=== PATIENT | male | born 1990 | race Two or more races ===

== ENCOUNTER 2018-02-23 10:03 | Observation (INO) | payer SELFPAY ==
[2018-02-23] MEDS ORDERED: fentaNYL 100 MCG/2 ML INJ IVP ONE ×3 (10:15→10:50)
[2018-02-23] MEDS ORDERED: fentaNYL 100 MCG/2 ML INJ ONE (10:47)
[2018-02-23] MEDS ORDERED: ONDANSETRON 4 MG/2 ML VIAL IVP PRN (10:49)
[2018-02-23] MEDS ORDERED: ONDANSETRON DISINTEGRATING 4 MG TAB PO PRN (10:49)
[2018-02-23] MEDS ORDERED: NALOXONE HCL 0.4 MG/ML INJ IVP PRN (10:49)
[2018-02-23] MEDS ORDERED: oxyCODONE IR 5 MG TAB PO PRN (10:52)
[2018-02-23] MEDS ORDERED: PROPOFOL 200 MG/20 ML VIAL ONE (10:55)
[2018-02-23] MEDS ORDERED: NS 1,000 ML IV SCH (11:00)
[2018-02-23] MEDS ORDERED: PROPOFOL 200 MG/20 ML VIAL IVP ONE ×2 (11:05→11:06)
--- NOTE | 2018-02-23 11:23 | EDPHY ---
H & P Stated Complaint: FTA Fall 25 Feet Source: Patient Exam Limitations: No limitations - Personal History Current Tetanus Diphtheria and Acellular Pertussis (TDAP): Unsure - Medical/Surgical History Hx Asthma: No Hx Chronic Respiratory Disease: No Hx Diabetes: No Hx Cardiac Disease: No Hx Renal Disease: No Hx Cirrhosis: No Hx Alcoholism: No Hx HIV/AIDS: No Hx Splenectomy or Spleen Trauma: No Other PMH: none - Social History Smoking Status: Never smoked Time Seen by Provider: 02/23/18 10:39 HPI/ROS: CHIEF COMPLAINT: Full trauma activation, right wrist injury, facial trauma, 25 ft fall HISTORY OF PRESENT ILLNESS: The patient presents to the ED as a full trauma activation with an obvious right wrist deformity. 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 He was brought in by paramedics. The patient's initial GCS was 14 with a upgraded him to a full trauma when he developed decreased mentation in route. The patient arrives to the emergency department with complaints of acute pain in his right wrist. The patient is somnolent and difficult to get history from. What history I can get, the patient does not appear to complain of pain outside of his right wrist. REVIEW OF SYSTEMS: A comprehensive 10 point review of systems is otherwise negative aside from elements mentioned in the history of present illness. (Leander Shannon) - Physical Exam Exam: General Appearance: Alert, no distress Head: Nasal contusion, ecchymosis, superficial abrasion Eyes: Pupils equal, round, reactive ENT, Mouth: No hemotympanum, no oral trauma Neck: Nontender, trachea midline Respiratory: No chest wall tender, no subcutaneous air, lungs clear bilaterally Cardiovascular: Regular rate and rhythm Abdomen: Abdomen is soft and nontender, pelvis stable Skin: No lacerations, No abrasion Back: No midline T/L/S pain Extremities: Obvious Colles fracture deformity noted to the right wrist Neurological: GCS 14, -1 for eyes, moves all 4 extremities with 5/5 strength with the exception of the right wrist (Leander Shannon) Constitutional: Initial Vital Signs Temperature (C) 37.7 C 02/23/18 10:04 Heart Rate 73 02/23/18 10:04 Respiratory Rate 16 02/23/18 10:04 Blood Pressure 131/94 H 02/23/18 10:04 O2 Sat (%) 99 02/23/18 10:04 O2 Delivery Mode Nasal Cannula O2 (L/minute) 4 Allergies/Adverse Reactions: No Allergies Allergy (Verified 02/23/18 10:49) Home Medications: Medication Instructions Recorded NK [No Known Home Meds] 02/23/18 Medical Decision Making - Diagnostics Imaging Results: Imaging Impressions Head CT 02/23/18 10:15 Impression: 1. Nothing acute intracranially. 2. Large congenital right subarachnoid cyst. Findings and recommendations discussed with Dr. Glo Chen at 1045 hour, 2017. Final report concurs with initial preliminary interpretation. Wrist X-Ray 02/23/18 10:17 Impression: 1. Comminuted, impacted fracture of the radial head which is displaced dorsally by one shaft width. 2. Comminuted fractures of the ulnar styloid. 3. Abnormal alignment of the carpal bones on lateral projection. Imaging Impressions Head CT 02/23/18 10:15 Impression: 1. Nothing acute intracranially. 2. Large congenital right subarachnoid cyst. Findings and recommendations discussed with Dr. Glo Chen at 1045 hour, 2017. Final report concurs with initial preliminary interpretation. Wrist X-Ray 02/23/18 10:17 Impression: 1. Comminuted, impacted fracture of the radial head which is displaced dorsally by one shaft width. 2. Comminuted fractures of the ulnar styloid. 3. Abnormal alignment of the carpal bones on lateral projection. CT head without contrast: Images reviewed by myself and discussed with radiologist, negative for acute intracranial hemorrhage or skull fracture CT chest with IV contrast: Negative for intrathoracic injury. CT abdomen pelvis with IV contrast: Negative for intra-abdominal or retroperitoneal injury. CT T and L-spine: Negative for acute fracture CT cervical spine: Negative for acute fracture. All images reviewed by myself and discussed with the on-call radiologist. (Leander Shannon) Procedures: Laceration Repair Verbal consent obtained by patient. Risks discussed, including but not limited to infection, pain, retained foreign body, need for additional repair, poor cosmetic result, tendon damage, nerve damage, poor wound healing, vascular damage. Alternatives to repair discussed. Wesley protocol used to establish correct patient, procedure, equipment, patient support partner, and site. Anesthesia obtained by local infiltration. Anesthetized with 1% lidocaine. Laceration location left nares, length 2.5 cm, depth 3 mm, Repair type intermediate. Patient was prepped and draped in usual sterile fashion. Hemostasis achieved with direct pressure. Wound explored through full range of motion and entire depth of wound probed and visualized with gloved finger. No suspicion for nerve damage, tendon damage, underlying fracture, vascular damage, foreign body, or contamination. Area was cleansed with Shur-Clens and irrigated with sterile saline as per protocol. No foreign body or material removed. Repair method 5-0 Vicryl, simple interrupted, subcutaneous sutures #2. 6 0 Prolene, simple interrupted sutures, superficial skin layer, #9. Eleven of sutures placed. Well aligned, closely approximated. wound was dressed with bacitracin. Patient tolerated well with no immediate complications. Wound care: Clean and dry x 24 hours, gently clean with soap and water, cover with topical antibiotic ointment/bandaid Suture/Staple removal: 7 Days (Ramos Peterson) 1. Procedure: Trauma ultrasound. Limited bedside ultrasound was performed and interpreted by myself for the indication of: Chest contusion. The exam was performed utilizing the thoracoabdominal emergency ultrasound protocol. Limited transthoracic echocardiogram: The pericardium was visualized and found to be negative for pericardial fluid. The study was negative for pericardial effusion. Limited abdominal ultrasound for blunt abdominal trauma. 1) The right upper quadrant was visualized and was found to be negative for intraperitoneal fluid. 2) The left upper quadrant was visualized and found to be negative for intraperitoneal fluid. The study was felt to be negative for free intraperitoneal fluid. Limited pelvic ultrasound was conducted for abdominal tenderness. The bladder was visualized and did not reveal an anechoic area outside of the adjacent urinary bladder. Bladder was distended with urine. The images were saved on the ultrasound database. 2. Procedure: Conscious sedation. Indication: Fracture dislocation reduction The patient is an appropriate candidate to tolerate procedural sedation. The patient's vital signs and mental status are appropriate. The risks, benefits and alternatives of the sedation were discussed with the patient. The patient is ASA classification 2. The patient's Mallampati airway score was 2 and the patient [did] meet the 3-3-2 airway measurements. A time out was completed. The patient was sedated with 80 mg of propofol. The patient was monitored with continuous pulse oximetry, installation drafter and end tidal CO2. [There were no complications and no significant hypoxemia.] I performed [both the sedation and the procedure.] The total time I spent at the bedside during the procedural sedation was 20 minutes. The patient was examined after the procedural sedation and has returned to their pre-sedation baseline with normal vital signs and a normal examination. 3. Procedure: Dislocation reduction. Indication: Dislocation The fracture dislocation of the right elbow was reduced in the usual fashion without complications. Post reduction the patient's neurovascular exam is normal. Post reduction x-ray demonstrates reduction of the joint to the anatomic position. The procedure was performed by myself. (Leander Shannon) ED Course/Re-evaluation: Patient was brought in as a full trauma activation. He arrives to the emergency department with a GCS of 14. Shortly after arrival the patient had decreased mentation transiently. The etiology of this is uncertain however he seemed to recover from the event fairly quickly. The patient was noted to have an obvious fracture dislocation involving the right upper extremity. Patient was taken for CT scan of the head, C-spine, chest abdomen and pelvis which demonstrate no evidence of an obvious intra-abdominal, intrathoracic, intracranial or cervical injury. The patient return to the emergency department. He was noted to have a linear nasal laceration which was cleaned and irrigated. Patient's laceration was repaired in the emergency department by the physician blacksmith assistant Ramos Peterson under my supervision. Patient was seen in consultation by Dr. Chen who will admit the patient in the setting of his concussion. The patient did receive conscious sedation for his fracture dislocation reduction. The patient did have a negative fast ultrasound performed by myself. (Leander Shannon) Critical Care Time: Critical care time exclusive of procedures and exclusive of the PA's time was 35 minutes, performed by myself, Leander Shannon MD. Patient presents the ED with a high mechanism fall with altered mental status. The patient has injuries which include concussion and a fracture dislocation of the arm. He will require admission to the hospital in a setting of his concussive syndrome. (Leander Shannon) - Data Points Laboratory Results: 02/23/18 10:12 POC Hgb 16.7 gm/dL gm/dL (13.7-17.5) POC Hct 49 % % (40-51) POC Sodium 142 mEq/L mEq/L (135-145) POC Potassium 3.7 mEq/L mEq/L (3.3-5.0) POC Chloride 104 mEq/L mEq/L (97-110) POC BUN 10 mg/dL mg/dL (7-23) POC Creatinine 0.9 mg/dL mg/dL (0.7-1.3) POC Glucose 147 mg/dL H mg/dL (70-100) Medications Given: Discontinued Medications Fentanyl (Sublimaze) 50 mcg IVP EDNOW ONE Stop: 02/23/18 10:16 Last Admin: 02/23/18 10:15 Dose: 50 mcg Fentanyl (Sublimaze) 50 mcg IVP EDNOW ONE Stop: 02/23/18 10:16 Last Admin: 02/23/18 10:50 Dose: Not Given Fentanyl (Sublimaze) 50 mcg IVP EDNOW ONE Stop: 02/23/18 10:51 Last Admin: 02/23/18 10:53 Dose: 50 mcg Propofol (Diprivan) 40 mg IVP EDNOW ONE Stop: 02/23/18 11:06 Last Admin: 02/23/18 11:05 Dose: 40 mg Propofol (Diprivan) 40 mg IVP EDNOW ONE Stop: 02/23/18 11:07 Last Admin: 02/23/18 11:06 Dose: 40 mg Point of Care Test Results: Chemistry 02/23/18 10:12 POC Sodium 142 mEq/L mEq/L (135-145) POC Potassium 3.7 mEq/L mEq/L (3.3-5.0) POC Chloride 104 mEq/L mEq/L (97-110) POC BUN 10 mg/dL mg/dL (7-23) POC Creatinine 0.9 mg/dL mg/dL (0.7-1.3) POC Glucose 147 mg/dL H mg/dL (70-100) ISTAT H&H 02/23/18 10:12 POC Hgb 16.7 gm/dL gm/dL (13.7-17.5) POC Hct 49 % % (40-51) Departure - Departure Disposition: [facility] Inpatient Acute Clinical Impression: Concussion Qualifiers: Encounter type: initial encounter Loss of consciousness presence/duration: without LOC Qualified Code(s): S06.0X0A - Concussion without loss of consciousness, initial encounter Nasal laceration Qualifiers: Encounter type: initial encounter Qualified Code(s): S01.21XA - Laceration without foreign body of nose, initial encounter Wrist fracture, right Qualifiers: Encounter type: initial encounter Fracture type: closed Qualified Code(s): S62.101A - Fracture of unspecified carpal bone, right wrist, initial encounter for closed fracture Condition: Fair
[2018-02-23] MEDS ORDERED: TDAP ADULT 0.5 ML INJ (BOOSTRIX) IM ONE ×2 (11:40→12:32)
--- NOTE | 2018-02-23 13:56 | GHP ---
DATE OF ADMISSION: 02/23/2018 CHIEF COMPLAINT: Trauma activation, fall. 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 He did not lose consciousness. His initial GCS at the scene was 14 and en route was declining. He complains of right arm pain. Initially in the trauma bay, he was not responding to questions, to the point where we were about to intubate him, and then started participating with exam. PAST MEDICAL HISTORY: None. PAST SURGICAL HISTORY: None. MEDICATIONS: None. ALLERGIES: No known drug allergies. SOCIAL HISTORY: Does not smoke, do drugs. He works in construction. FAMILY HISTORY: Noncontributory. REVIEW OF SYSTEMS: Difficult to obtain a full 10-point review of systems as he is concentrating mainly on his wrist pain. PHYSICAL EXAMINATION: VITAL SIGNS: 37.7, 73. 131/94, 16, 99%. GENERAL: Pleasant, lying on gurney, ultimately cooperative with exam. HEAD: No obvious signs of trauma to the occiput. EYES: Pupils equal and round. The extraocular muscles are intact. EARS: No otorrhea. No hemotympanum. NOSE: He has a laceration on the left. MOUTH: There is some blood in the mouth. He does have poor dentition. All of his teeth appear to be intact. FACE: No midface instability. CHEST: No clavicular or sternal tenderness. LUNGS: Clear to auscultation bilaterally. No increased work of breathing. CARDIAC: Regular rate. ABDOMEN: Bowel sounds present. Soft, nontender to palpation. MUSCULOSKELETAL: Moves all extremities well with the exception of the right forearm. The right wrist is grossly deformed. On cardiovascular, he does have a radial pulse. RESULTS REVIEWED: I personally reviewed the CT scan of his head, C-spine, chest , abdomen, and pelvis. He does have an air filled sac in the brain. There is no obvious intracranial abnormality. I do not see hemothorax or pneumothorax. No spinal fractures. No solid organ injury. His wrist x-ray, which I personally reviewed, shows fracture dislocation. There is an impacted fracture of the radial head and comminuted fractures of the ulnar styloid. IMPRESSION AND PLAN: The patient is a 27-year-old man with a concussion, nasal laceration, and fracture dislocation of the right wrist. 1. Neurosurgery has been consulted to comment on the cystic structure in his brain. I do not think that this a contributing factor to the trauma. We will do neuro checks q.4 hours due to his GCS declining and then going back to 15. 2. The laceration on his nose will be sutured. 3. On his neck, I palpated his spine. His cervical spine CT was negative, so I cleared his C-spine in the ER. 4. Dr. Shannon reduced the dislocation in his right wrist. Dr. Cleveland has been consulted. The patient may eat, nonweightbearing right forearm. /[id number]/MODL MTDD
--- NOTE | 2018-02-23 14:39 | SOAPPROG ---
MARIA ANTONIA Progress Note Assessment/Plan: Assessment: Syed is a pleasant 27 year old [place] islander speaking male who presented to [facility] ER after falling approximately 25 feet while at work earlier today. He came in with complaints of right wrist pain with obvious deformity of the wrist. Radiographs were taken which showed fracture, dislocation of the distal radius and ulnar styloid fracture. Closed reduction was performed in the ER with adequate reduction (persistent 4.5 mm of dorsal displacement) and sugar tong splint placed. He denies pain elsewhere. He did have symptoms of concussion at time of arrival and has been admitted to trauma for observation. PE: Well molded sugar tong splint in place. Mild swelling of the digits. Sensation intact to light touch of the digits with a brisk cap refill. Post reduction radiographs of the wrist show fracture to be adequately reduced with persistent 4.5mm of dorsal displacement. Plan: Patient will remain NWB in the current sugar tong splint. We discussed that the fracture is still displaced and may need surgical intervention on an outpatient basis. He will continue in the sugar tong splint and will follow up in office in 10-14 days for repeat evaluation and repeat radiograph while in the splint to evaluate for further displacement and discuss options including casting vs surgical intervention. 02/23/18 14:32 Objective: Vital Signs Temp Pulse Resp BP Pulse Ox 37.9 C 91 14 113/71 96 02/23/18 12:56 02/23/18 12:56 02/23/18 12:56 02/23/18 12:56 02/23/18 12:56 02/22/18 02/23/18 02/24/18 05:59 05:59 05:59 Intake Total 1000 Balance 1000 ICD10 Worksheet Patient Problems: Problems Problem Status Onset Concussion Acute Nasal laceration Acute Wrist fracture, right Acute
[2018-02-23] MEDS: ACETAMINOPHEN 325 MG TAB PO PRN ×2 (16:18→23:14)
--- NOTE | 2018-02-23 19:13 | GCON ---
NEUROSURGERY CONSULT. DATE OF CONSULTATION: 02/23/2018 The patient was seen and evaluated on the general care floor at [facility] [place] 12:45 p.m. on 02/23/2018. HPI: Syed Nichols is a 27-year-old man who was admitted as a trauma activation after fall ing 25 feet working on a roof. He was brought in by the paramedics. Initial GCS was 14, which fluct uated somewhat en route. He got a CT scan in the emergency department, which did not show any acute traumatic injury or bleeding. However, he does have a large right frontotemporal arachnoid cyst with out compression. His mentation has improved over some time, although he seems like he may have a con cussion and otherwise he was found to have a wrist fracture, but no other acute surgical issues. We were asked to consult regarding the arachnoid cyst. REVIEW OF SYSTEMS: A 10-point review of systems is negative other than described above in the HPI ot her than wrist pain. PAST MEDICAL HISTORY: None. PAST SURGICAL HISTORY: None. ALLERGIES: No known drug allergies. MEDICATIONS: None. SOCIAL HISTORY: The patient denies tobacco, alcohol, or other drug use. He works in construction. FAMILY HISTORY: Noncontributory to this admission. PHYSICAL EXAM: VITAL SIGNS: Currently, he is afebrile with normal stable vital signs. NEUROLOGIC: He is awake, alert, and oriented x3. His speech is clear and fluent, although he speaks primarily Sp eduardo. He follows commands with all 4 limbs and has normal strength throughout all muscle groups. H is sensation is intact. IMAGING REVIEW: CT scan is negative for traumatic injury, but does show a large right frontotemporal arachnoid cyst, which is congenital. There is no brain compression and indeed this could represent another congenital anomaly such as porencephaly. The patient is asymptomatic from this standpoint. ASSESSMENT AND PLAN: Syed Nichols is a 27-year-old man who fell 25 feet off a roof. He d oes not have acute intracranial traumatic injury. However, he was found to have a large arachnoid cy st. These are congenital lesions which do not require further followup or evaluation. He does not a ppear to have any symptoms related to this whatsoever. Neurosurgery will sign off at this time, but please do not hesitate to let us know if we can be of further assistance. Thanks for the kind consultation. /[id number]/MODL
--- NOTE | 2018-02-24 06:59 | GCON ---
INPATIENT CONSULTATION DATE OF CONSULTATION: 02/23/2018 CURRENT COMPLAINTS: Right hand and wrist pain. HISTORY OF PRESENT ILLNESS: The patient is a 27-year-old male who fell approximately 25 feet. Was s een in the emergency room. Was noted to have an obvious wrist deformity who had decreased mentation in the emergency room and continued to have mentation issues. He had a right comminuted distal radiu s fracture that was reduced in the emergency room and placed in a sugar-tong splint. I was asked to see the patient for further evaluation. PHYSICAL EXAMINATION: The patient's FPL as well as the FDP in all 4 lesser digits are intact althoug h language barrier is an issue. He does state that he has normal sensation to the thumb, forefinger and small finger. His splint appears to be intact. X-ray exam after reduction reveals good lengthen ing of his fracture. He continues to have some dorsal displacement through the fracture but appears to have a single distal piece to the radius. Given his issues with mentation and possible head injur y, he will be safe within the splint for now. Ultimately, he will need either a re-reduction and pin danuta or plating of the distal radius in order to gain full length and good volar tilt. However, that could be done over the next 2 weeks at some point, on a semi elective basis once he has been cleared from a concussion protocol. He is to increase his calcium intake. We will continue to follow him. He is welcome to see us on an outpatient basis in order to have an elective fixation of the distal r adius. /[id number]/MODL
[2018-02-24] MEDS: ACETAMINOPHEN 325 MG TAB PO PRN ×3 (08:37→23:10)
--- NOTE | 2018-02-24 09:16 | TRAUMAPN ---
Trauma Progress Note Assessment/Plan: 27yo M s/p fall c R distal radius/ulnar fx dislocation (splinted), [facility] TERTIARY EXAM Neuro: GRIGSBY, nonfocal. No SIMENTAL, no nausea or vomiting Pulm: BENNIE CV: HDS Abdomen: soft, ND, NT Renal: voiding Heme: stable Id: afebrile Ortho: fx as above, splinted. Will discuss c ortho timing of operation. Ideally could happen this admit Dispo: NPO, ERP MANAGER, PT OT Subjective: R arm pain, no other complaints Objective: Vital Signs Temp Pulse Resp BP Pulse Ox 37.3 C 87 18 124/79 H 93 02/24/18 07:50 02/24/18 07:50 02/24/18 07:50 02/24/18 07:50 02/24/18 07:50 02/23/18 02/24/18 02/25/18 05:59 05:59 05:59 Intake Total 1800 Output Total 400 Balance 1400
--- NOTE | 2018-02-24 11:23 | ASMTCMCOM ---
CM Note CM Note Notes: CM reviewed pt's chart for d/c planning. Pt is a 27 y/o male who fell off a roof while repairing it. He was diagnosed with a concussion, nasal laceration and fracture dislocation of the right wrist. PT, OT and DIRECTOR OF CATH LAB were ordered. PT has recommended "home". No CM needs have been identified. CM will follow for changes D/C Plan: Independent. Date Signed: 02/24/2018 11:22 AM Electronically Signed By:Melissa Kirkpatrick
[2018-02-24] MEDS ORDERED: LR 1,000 ML IV ONE (18:56)
[2018-02-24] MEDS ORDERED: BUPIVACAINE 0.5% 30 ML SDV ONE (18:58)
--- NOTE | 2018-02-24 19:31 | PDANEPAE ---
ANE Past Medical History - Cardiovascular History Hx Hypertension: No Hx Arrhythmias: No Hx Chest Pain: No Hx Coronary Artery / Peripheral Vascular Disease: No Hx CHF / Valvular Disease: No Hx Palpitations: No - Pulmonary History Hx COPD: No Hx Asthma/Reactive Airway Disease: No Hx Recent Upper Respiratory Infection: No Hx Oxygen in Use at Home: No Hx Sleep Apnea: No Sleep Apnea Screening Result - Last Documented: Negative - Endocrine History Hx Diabetes: No Hypothyroid: No Hyperthyroid: No Obesity: no - Renal History Hx Renal Disorders: No - Liver History Hx Hepatic Disorders: No - Neurological & Psychiatric Hx Hx Neurological and Psychiatric Disorders: No - Cancer History Hx Cancer: No - Congenital Disorder History Hx Congenital Disorders: No - GI History GERD: no Hx Gastrointestinal Disorders: No - Chronic Pain History Chronic Pain: No - Surgical History Prior Surgeries: None ANE Review of Systems Review of Systems: - Exercise capacity Exercise capacity: >=4 METS METS (RN): 6 METS ANE Patient History - Allergies Allergies/Adverse Reactions: No Allergies Allergy (Verified 02/23/18 10:49) - Home Medications Home Medications: NK [No Known Home Meds] 02/23/18 [Last Taken Unknown] - NPO status NPO Since - Liquids (Date): 02/24/18 NPO Since - Liquids (Time): 08:30 NPO Since - Solids (Date): 02/24/18 NPO Since - Solids (Time): 19:00 - Anes Hx Hx Anesthesia Complications (with details): no prior h/o anesthesia - Smoking Hx Smoking Status: Never smoked - Alcohol Use Alcohol Use: Rarely - Family Anes Hx Family Anes Hx: neg - N/A ANE Labs/Vital Signs - Vital Signs Blood Pressure: 124/85 Heart Rate: 88 Respiratory Rate: 21 O2 Sat (%): 95 Height: 150 cm Weight: 56.699 kg ANE Physical Exam - Airway Neck exam: FROM Mallampati Score: Class 2 Mouth exam: normal dental/mouth exam - Pulmonary Pulmonary: no respiratory distress, no rales or rhonchi, clear to auscultation - Cardiovascular Cardiovascular: regular rate and rhythym, no murmur, rub, or gallop - ASA Status ASA Status: I ANE Anesthesia Plan Anesthesia Plan: GA w LMA Total IV Anesthesia: No
[2018-02-24] MEDS ORDERED: MIDAZOLAM 2 MG/2 ML VIAL IVP ONE (19:41)
[2018-02-24] MEDS ORDERED: PHENYLEPHRINE HCL 100 MCG/ML SYR IVP PRN (19:42)
[2018-02-24] MEDS ORDERED: ACETAMINOPHEN 500 MG TAB PO PRN (19:42)
[2018-02-24] MEDS ORDERED: NALOXONE HCL 0.4 MG/ML INJ IVP PRN (19:42)
[2018-02-24] MEDS ORDERED: fentaNYL 100 MCG/2 ML INJ IVP PRN (19:42)
[2018-02-24] MEDS ORDERED: ONDANSETRON 4 MG/2 ML VIAL IVP PRN (19:42)
[2018-02-24] MEDS ORDERED: PROMETHAZINE HCL 25 MG/ML INJ IVP PRN (19:42)
[2018-02-24] MEDS ORDERED: LR 500 ML IV PRN (19:42)
[2018-02-24] MEDS ORDERED: oxyCODONE IR 5 MG TAB PO PRN (19:42)
[2018-02-24] MEDS ORDERED: HYDROCODONE/APAP 5/325 TAB PO PRN (19:42)
[2018-02-24] MEDS ORDERED: PROPOFOL 200 MG/20 ML VIAL ONE (19:52)
[2018-02-24] MEDS ORDERED: fentaNYL 100 MCG/2 ML INJ ONE ×2 (19:52→20:40)
[2018-02-24] MEDS ORDERED: LIDOCAINE 2% 5 ML SDV ONE (19:53)
[2018-02-24] MEDS ORDERED: ONDANSETRON 4 MG/2 ML VIAL ONE (19:53)
[2018-02-24] MEDS ORDERED: DEXAMETHASONE 4 MG/ML VIAL ONE (20:09)
[2018-02-24] MEDS ORDERED: KETOROLAC 30 MG/1 ML SDV ONE (20:22)
[2018-02-24] MEDS ORDERED: ceFAZolin 1 GM VIAL ONE ×2 (20:34)
--- NOTE | 2018-02-24 21:11 | POSTOPPROG ---
Post Op Note Date of Operation: 02/24/18 Surgeon: Reina Cleveland Anesthesia: LMA Pre-op Diagnosis: r dist rad/uln fx Procedure: crpp r dist rad with fluoro Inf/Abcess present in the surg proc area at time of surgery?: No Depth: Superfical (Skin SQ) EBL: 50-100
--- NOTE | 2018-02-24 21:18 | POSTANESTH ---
Post Anesthetic Evaluation Cardiovascular Status: Normal, Stable Respiratory Status: Normal, Stable Level of Consciousness/Mental Status: Mildly Sleepy, Arousable Pain Control: Adequate, Prn Tx Ordered Nausea/Vomiting Control: Adequate, Prn Tx Ordered Complications Possibly Related to Anesthesia: None Noted
[2018-02-25] MEDS: ACETAMINOPHEN 325 MG TAB PO PRN ×2 (04:59→11:25)
--- NOTE | 2018-02-25 07:24 | GOP ---
DATE OF OPERATION: 02/24/2018 SURGEON: Reina Cleveland MD ANESTHESIA: LMA. PREOPERATIVE DIAGNOSIS: Right distal radius and ulna comminuted fracture. POSTOPERATIVE DIAGNOSIS: Right distal radius and ulna comminuted fracture. PROCEDURE PERFORMED: Closed reduction and percutaneous pinning of the right distal radius with the u se of fluoroscopy. FINDINGS: INDICATIONS: This is a 27-year-old male who fell off a roof yesterday, had a head injury as well as a fractured wrist. He was placed in a sugar-tong splint. He was cleared for surgery today. He was, therefore, brought to the operating room as soon as time was available. DESCRIPTION OF PROCEDURE: Patient was brought to the operating room after the right side had been id entified as the correct side by the patient, nurse and physician. Once in the operating room, he was placed under general anesthesia using an LMA. Once asleep, a tourniquet was placed around the upper portion of the right arm. A closed reduction was attempted, was noted to get good reduction via Flu oroScan. Therefore, the right upper extremity was sterilely prepped and draped in the usual fashion using a GSI solution. Once prepped and draped, closed reduction was again performed. Once getting a good reduction, 1.6 mm pins were placed through the radial styloid, two through the dorsal forearm a nd one in the metaphysis, in order to gain further fixation. Once completed, the wires were bent tima se to the skin, cut short. The wounds were dressed with Xeroform, 4 x 4 and Webril. The arm was com pletely undraped in the operating, tourniquet removed from the arm, and a dorsal and volar plaster sp lint was put into place. Once dried, an Monico wrap was placed around the arm. After the splint had dr ied and hardened, patient was woken up, extubated, transferred onto a stretcher, and sent to recovery room in good condition. /[id number]/MODL
[2018-02-25 07:56] VITALS: BP 113/80
--- NOTE | 2018-02-25 10:13 | TRAUMAPN ---
Trauma Progress Note Assessment/Plan: 27yo M s/p fall c R distal radius/ulnar fx dislocation (splinted), CHI s/p CRIF right radial/ulnar fx yesterday no overnight issues pain controlled avss comfortable, up in chair lip lac clean right arm splint intact hand warm, sensate doing well. home today - lives with cousin f/u wallis tuesday for suture removal f/u keisha 2 weeks for arm assessment Objective: Vital Signs Temp Pulse Resp BP Pulse Ox 36.7 C 80 16 113/80 94 02/25/18 07:53 02/25/18 07:53 02/25/18 07:53 02/25/18 07:53 02/25/18 07:53 02/24/18 02/25/18 02/26/18 05:59 05:59 05:59 Intake Total 1800 1250 Output Total 400 0 Balance 1400 1250
--- NOTE | 2018-02-25 12:16 | GDS ---
REASON FOR ADMISSION: Fall. HOSPITAL COURSE: 27-year-old healthy male admitted as a trauma activation after falling 25 feet, working on a roof. Injuries included a nasal laceration , incidental finding of an arachnoid cyst, as well as a right distal radial/ ulnar fracture. He was admitted for further evaluation and management. He was seen by Dr. Dey from neurosurgical service. No further treatment recommendations were recommended regarding his arachnoid cyst. He was seen by Dr. Cleveland, who did a closed reduction and internal fixation of his distal radius and ulnar fractures. His nasal laceration was repaired primarily in the emergency room. No other significant hospital events ensued. He was discharged to home on the in good condition. He was given prescriptions for oxycodone as needed for pain. He will follow up with Dr. Quick on Tuesday for suture removal. He will follow up with Dr. Cleveland in 2 weeks for arm assessment. Full activity instructions were explained to the patient in Yoruba prior to leaving. /[id number]/MODL MTDD
--- NOTE | 2018-02-25 13:00 | SOAPPROG ---
MARIA ANTONIA Progress Note Assessment/Plan: Assessment: Plan: Subjective: states he's doing ok splint intact with hand NVI cont splint FU in office in 2 weeks Objective: Vital Signs Temp Pulse Resp BP Pulse Ox 36.7 C 80 16 113/80 94 02/25/18 07:53 02/25/18 07:53 02/25/18 07:53 02/25/18 07:53 02/25/18 07:53 02/24/18 02/25/18 02/26/18 05:59 05:59 05:59 Intake Total 1800 1250 Output Total 400 0 Balance 1400 1250 ICD10 Worksheet Patient Problems: Problems Problem Status Onset Concussion Acute Nasal laceration Acute Wrist fracture, right Acute
--- NOTE | 2018-02-25 13:14 | ASMTLACE ---
CARTER Length of stay for Answers: 2 days current admission Acuity / Level of Answers: Yes Care: Did the patient have an inpatient admission? # of Emergency department Answers: 1-2 visits in the last 6 months Score: 6 Date Signed: 02/25/2018 01:13 PM Electronically Signed By:Helene Ruiz RN
--- NOTE | 2018-02-25 13:32 | ASDISCHSUM ---
Discharge Information Plan Status:Home with No Needs Medically Cleared to Leave:02/24/2018 Discharge Date:02/25/2018 01:03 PM CM D/C Disposition:Home, Routine, Self-Care ADT D/C Disposition:Home, Routine, Self-Care Projected Discharge Date:02/25/2018 01:03 PM Transportation at D/C:Family Discharge Delay Reason: Follow-Up Date:02/25/2018 01:03 PM Discharge Slot:2 - 12:01 pm - 18:00 pm Final Diagnosis:Trauma, distal radial/ulnar fracture, nose laceration, concussion Placement Information Patient Contact Information Contact Name:NPPT Relationship: Address: Home Phone: Work Phone: City: Alternate Phone: State/[place] Code: Email: Financial Information Financial Class:Self-Pay Primary Plan Desc:SELF PAY Primary Plan Number: Secondary Plan Desc: Secondary Plan Number: Assessment Information LACE LACE Length of stay for Answers: 2 days current admission Acuity / Level of Answers: Yes Care: Did the patient have an inpatient admission? # of Emergency department Answers: 1-2 visits in the last 6 months Score: 6 Date Signed: 02/25/2018 01:13 PM Electronically Signed By:Helene Ruiz RN [facility] CM Progress Note CM Note CM Note Notes: CM reviewed pt's chart for d/c planning. Pt is a 27 y/o male who fell off a roof while repairing it. He was diagnosed with a concussion, nasal laceration and fracture dislocation of the right wrist. PT, OT and [employer] were ordered. PT has recommended "home". No CM needs have been identified. CM will follow for changes D/C Plan: Independent. Date Signed: 02/24/2018 11:22 AM Electronically Signed By:Melissa Kirkpatrick Case Management Discharge Plan Note Case Management Discharge Discharge Order Complete? Answers: Yes Patient to Obtain Answers: Independently Medications Transportation Arranged Answers: Family/Friends Transport will Pick (Date 02/25/2018 12:00 AM & Time) EMTALA Complete Answers: No Notes: N/A Case Management Transport Answers: No Notes: N/A Form Complete Faxed Final Orders Answers: No Notes: N/A Agency/Facility Transfer Answers: No Notes: N/A Report Printed & Faxed to Receiving Agency Family Notified Answers: No Notes: Pt notified Discharge Comments Notes: Reviewed chart regarding discharge plan of care, pt's progress. Pt to discharge home independently with no identified needs. Letter requested on pt's behalf by Dori Valenciafull time staff interpreter. Per Greg, pt missed an immigration appointment on Tuesday02/24/18 secondary to his hospitalization. Letter provided to pt explaining reason for hospitalization and reason for missing immigration appointment; CM phone number provided for further questions. No IM/MICHAEL forms signed, not applicable. Pt to follow up as directed. CM available for any further issues or concerns. Discharge Plan: Home independently Date Signed: 02/25/2018 01:24 PM Electronically Signed By:Helene Ruiz RN Intervention Information
== END 2018-02-25 13:03 | disposition home or self-care (01) ==
LOC: EDBD 10:03 → F3N 12:48
PROVIDERS: ADMIT Surgery; ATTEND Surgery
DX: S06.0X0A Concussion without loss of consciousness, initial encounter (principal); S01.21XA Laceration without foreign body of nose, initial encounter; S52.121A Displaced fracture of head of right radius, initial encounter for closed fracture; S52.611A Displaced fracture of right ulna styloid process, initial encounter for closed fracture; G93.0 Cerebral cysts; W17.89XA Other fall from one level to another, initial encounter; Y92.89 Other specified places as the place of occurrence of the external cause; Y93.9 Activity, unspecified; Y99.0 Civilian activity done for income or pay
CPT/HCPCS: 82435-PO; 82565-PO; 82947-PO; 84132-PO; 84295-PO; 84520-PO; 85014-PO; 92523-GN; 96374; 97161-GP; 97166-GO; 97535-GO; C1713; G0378; J0690; J1100; J1885; J2250; J2405; J2704; J3010